=== PATIENT | female | born 1970 | race Caucasian/White ===

== ENCOUNTER → 2020-02-13 15:37 | Outpatient (BNVA) | payer OTHER, SELFPAY | PROVIDERS: Family Provider Internal Medicine; PCP Family Medicine; Visit Provider Nurse Practitioner Family | DX: N39.0 Urinary tract infection, site not specified (principal) | CPT/HCPCS: 81001 ==

== ENCOUNTER 2021-06-04 09:03 | Outpatient (CLI) | payer OTHER, SELFPAY ==
[2021-06-04 07:53] VITALS: BP 125/70; PULSE 71; RESP 16; TEMP 36.7; O2SAT 98; BMI 28.3
[2021-06-04 10:00] VITALS: BP 113/71; PULSE 61; RESP 16; TEMP 36.7; O2SAT 97
[2021-06-04 11:00] VITALS: BP 106/71; PULSE 56; RESP 16; TEMP 36.6; O2SAT 98
== END 2021-06-04 09:04 | disposition home or self-care (01) ==
LOC: OPS 09:07
PROVIDERS: PCP Family Medicine; Visit Provider Clinical Nurse Specialist Adult Health
DX: U07.1 COVID-19 (principal)
CPT/HCPCS: 96365

== ENCOUNTER → 2023-07-01 16:02 | Outpatient (BNVA) | payer OTHER, SELFPAY | PROVIDERS: PCP Family Medicine; Visit Provider Family Medicine | DX: R50.9 Fever, unspecified (principal); R05.9 Cough, unspecified | CPT/HCPCS: 87071; 87400 ==

== ENCOUNTER 2023-12-31 06:00 | Outpatient (CLI) | payer OTHER, SELFPAY | END 2023-12-31 06:01 | disposition home or self-care (01) | PROVIDERS: PCP Family Medicine; Visit Provider Nurse Practitioner Family | DX: R10.9 Unspecified abdominal pain (principal) | CPT/HCPCS: 81000 ==

== ENCOUNTER → 2025-05-07 09:58 | Outpatient (BNVA) | payer OTHER, SELFPAY | PROVIDERS: PCP Family Medicine; Visit Provider Family Medicine | DX: B34.9 Viral infection, unspecified (principal) | CPT/HCPCS: 87400 ==